=== PATIENT | male | born 1990 | race African-American/Black ===

== ENCOUNTER 2017-07-08 00:10 | Emergency (ER) | payer OTHER ==
[2017-07-08] MEDS: HYDROCODONE/APAP (10/325) TAB PO (05:15)
[2017-07-08] MEDS: KETOROLAC 60 MG INJ IM (05:20)
== END 2017-07-08 05:45 | disposition home or self-care (01) ==
LOC: FTE 00:10
DX: S93.401A Sprain of unspecified ligament of right ankle, initial encounter (principal); X58.XXXA Exposure to other specified factors, initial encounter; Y92.9 Unspecified place or not applicable
CPT/HCPCS: 29515; 73610-RT; 96372; 99284-25

== ENCOUNTER 2017-09-16 02:47 | Emergency (ER) | payer OTHER ==
[2017-09-16] MEDS: KETOROLAC 60 MG INJ IM (03:34)
== END 2017-09-16 04:06 | disposition home or self-care (01) ==
LOC: FTE 02:47
DX: R51 Headache (principal); F17.210 Nicotine dependence, cigarettes, uncomplicated; Z79.82 Long term (current) use of aspirin
CPT/HCPCS: 96372; 99284-25

== ENCOUNTER 2018-12-25 08:30 | Emergency (ER) | payer OTHER ==
[2018-12-25] MEDS: KETOROLAC 30 MG INJ IM (09:07)
== END 2018-12-25 09:17 | disposition home or self-care (01) ==
LOC: FTE 09:17
DX: R51 Headache (principal); R40.2142 Coma scale, eyes open, spontaneous, at arrival to emergency department; R40.2252 Coma scale, best verbal response, oriented, at arrival to emergency department; R40.2362 Coma scale, best motor response, obeys commands, at arrival to emergency department; Z79.82 Long term (current) use of aspirin
CPT/HCPCS: 96372; 99284-25

== ENCOUNTER 2019-02-09 18:43 | Emergency (ER) | payer OTHER | END 2019-02-09 19:29 | disposition home or self-care (01) | LOC: E/R 18:43 | DX: J03.90 Acute tonsillitis, unspecified (principal) | CPT/HCPCS: 99283; Z7502 ==